=== PATIENT | female | born 1955 | race Caucasian/White ===

== ENCOUNTER → 2021-08-10 | Outpatient (CLI) | payer BC ==
--- NOTE | 2021-08-10 12:02 | REPVR ---
PROCEDURE INFORMATION: Exam: MR Lumbar Spine Without Contrast Exam date and time: 08/10/2021 8:29 AM Age: 65 years old Clinical indication: Low back pain; Additional info: R/O FX or herniation TECHNIQUE: Imaging protocol: Multiplanar magnetic resonance images of the lumbar spine without intravenous contrast. COMPARISON: No relevant prior studies available. FINDINGS: Vertebrae: No acute compression fracture is seen. There is mild anterolisthesis of L4 on L5 due to severe facet arthropathy. Spinal cord: The conus medullaris terminates at the L1 level. There is no evidence of arachnoiditis or cauda equina compression. L1-L2: No significant disc disease. No significant spinal stenosis or neural foraminal narrowing. L2-L3: There is mild diffuse circumferential disc bulging and facet arthropathy. There is no significant spinal canal or neural foraminal stenosis. L3-L4: There is mild diffuse circumferential disc bulging, moderate facet arthropathy, and thickening of the ligamentum flavum. This is causing minimal spinal canal stenosis. There is no significant neural foraminal narrowing. L4-L5: There is disc dehydration, moderate disc space narrowing, mild diffuse circumferential disc bulging, severe facet arthropathy, and thickening of the ligamentum flavum. This is causing minimal spinal canal stenosis and mild right neural foraminal narrowing. L5-S1: There is mild diffuse circumferential disc bulging with a superimposed left paracentral, subarticular, and foraminal disc protrusion. Severe facet arthropathy and thickening of the ligamentum flavum is also present. The disc protrusion is causing mild narrowing of the left subarticular recess and moderate left neural foraminal narrowing. The protrusion abuts the descending left S1 nerve and the exiting left L5 nerve. No nerve compression is seen. There is no significant spinal canal or right foraminal stenosis. Soft tissues: Unremarkable. Kidneys and ureters: The left kidney is not visualized and may be surgically or congenitally absent. IMPRESSION: Degenerative changes of the lumbar spine as discussed above Electronically signed by: Gunnar Ayala On 08/10/2021 12:02:05 PM
== END ==
LOC: M PLARAD 07:43
PROVIDERS: ATTEND Physician Assistant
DX: M51.36 Other intervertebral disc degeneration, lumbar region (principal); M54.50 Low back pain, unspecified

== ENCOUNTER 2021-10-27 10:52 | Emergency (ER) | payer BC ==
[~2021-10-27] VITALS: Ht 167.6 cm; Wt 78.5 kg
[2021-10-27] MEDS ORDERED: LEXA1TAB PO (12:31)
[2021-10-27] MEDS ORDERED: LOSA100T50 PO (12:31)
[2021-10-27] MEDS ORDERED: OXYB10TA23 PO (12:31)
[2021-10-27 13:14] VITALS: BP 134/96
== END 2021-10-27 13:27 | disposition home or self-care (01) ==
LOC: M ED 10:52
DX: U07.1 COVID-19 (principal); N32.81 Overactive bladder; I10 Essential (primary) hypertension; F41.9 Anxiety disorder, unspecified; Z79.899 Other long term (current) drug therapy

== ENCOUNTER → 2022-03-13 | Outpatient (CLI) | payer BC ==
[~2022-03-13] MED LIST: LEXA1TAB PO; LOSA100T45 PO; OXYB10TA23 PO
== END ==
LOC: M LABSMTC 11:35
PROVIDERS: ATTEND Anesthesiology
DX: Z01.812 Encounter for preprocedural laboratory examination (principal); Z20.822 Contact with and (suspected) exposure to COVID-19

== ENCOUNTER 2022-03-14 06:18 | Day surgery (SDC) | payer BC ==
[~2022-03-14] VITALS: Ht 167.6 cm; Wt 74.8 kg
[~2022-03-14 06:18] MED LIST changes: +NS 1,000 ML IV ONE
[2022-03-14] MEDS ORDERED: LIDOCAINE 2% 100MG/5ML SDV (FOR ANES.) As Ordered ONE (06:29)
[2022-03-14] MEDS ORDERED: propofoL 200 MG/20 ML VIAL As Ordered ONE (06:29)
[2022-03-14 08:55] VITALS: BP 156/83
== END 2022-03-14 09:03 | disposition home or self-care (01) ==
LOC: M OPP 06:18
PROVIDERS: ATTEND Surgery
DX: Z86.010 Personal history of colon polyps (principal); K57.30 Diverticulosis of large intestine without perforation or abscess without bleeding; I10 Essential (primary) hypertension; M19.90 Unspecified osteoarthritis, unspecified site; Z87.891 Personal history of nicotine dependence; Z79.899 Other long term (current) drug therapy